=== PATIENT | male | born 1970 | race Caucasian/White ===

== ENCOUNTER 2020-08-27 16:58 | Emergency (ER) | payer BC ==
[~2020-08-27] VITALS: Ht 162.6 cm; Wt 85.3 kg
[2020-08-27 17:22] VITALS: Ht 162.6 cm; Wt 85.3 kg
[2020-08-27 18:16] VITALS: BP 145/57
== END 2020-08-27 18:16 | disposition home or self-care (01) ==
LOC: ED 16:58
DX: S43.084A Other dislocation of right shoulder joint, initial encounter (principal); W22.8XXA Striking against or struck by other objects, initial encounter; Y93.66 Activity, soccer; Y92.89 Other specified places as the place of occurrence of the external cause; Y99.8 Other external cause status